=== PATIENT | male | born 1950 | race American Indian/Alaskan Native ===

== ENCOUNTER 2017-05-23 02:01 | Inpatient (IN) | payer OTHER, MEDICARE ==
[2017-05-23 03:40] LABS: Hemoglobin 12.1 gm/dl (11.8-15.2); Mean Corpuscular HGB Conc 33 % (32-34); Mean Corpuscular Hemoglobin 31 pg (28-32); Mean Corpuscular Volume 93 fl (84-94); Platelet Count 333 K/mm3 (140-440); Red Blood Count 3.96 M/mm3 (3.65-5.03); Red Cell Distribution Width 12.6 % (13.2-15.2)
[2017-05-23 03:48] LABS: INR 1.22 (0.87-1.13)
[2017-05-23 03:49] LABS: Partial Thromboplastin Time 33.3 Sec. (24.2-36.6)
[2017-05-23] MEDS ORDERED: CLEOCIN 600 MG/50 mL 600 MG/50 ML BAG IV ONE (03:51)
--- NOTE | 2017-05-23 03:51 | Emergency Department Report ---
ED Extremity Problem HPI - General Chief complaint: Extremity Injury, Lower Stated complaint: LEFT LEG PAIN Time Seen by Provider: 05/23/17 02:59 Source: patient, old records reviewed (no previous record) Mode of arrival: Ambulatory Limitations: Physical Limitation - History of Present Illness Initial comments: 67-year-old male with a past medical history hypertension presents to the Hospital complains of left leg swelling 3 days. Patient states he woke up and notices leg was swollen and feels like a soreness rated 8/10 when he tries to ambulate on the leg. Patient bought a cane to assist with ambulation due to the symptoms. Patient denies chest pain, shortness of breath, or near syncope. No recent travel or PE/DVT. Denies fevers or trauma. - Related Data Allergies Allergy/AdvReac Type Severity Reaction Status Date / Time influenza virus vaccine, AdvReac Dizziness Verified 05/23/17 02:20 specific ED Review of Systems ROS: Stated complaint: LEFT LEG PAIN Other details as noted in HPI Comment: All other systems reviewed and negative Other: Constitutional: No fevers chills Eyes: No eye pain visual changes ENT: No ear pain or throat pain Neck: Denies pain Respiratory: Denies cough wheezing shortness of breath Cardiovascular: Denies chest pain, palpitations, syncope GI: Denies abdominal pain, nausea, vomiting, diarrhea : Denies dysuria Musculoskeletal: As per HPI Skin: Denies rash, lesions, erythema Neurologic: Denies headache, numbness, weakness Psychiatric: Denies suicidal ideation, hallucinations ED Past Medical Hx - Past Medical History Previous Medical History?: Yes Hx Hypertension: Yes (Diet controlled) - Surgical History Past Surgical History?: Yes Additional Surgical History: EGD - Social History Smoking Status: Former Smoker ED Physical Exam - General Limitations: Physical Limitation - Other Other exam information: General: No limitations, patient is alert in no acute distress Head exam: Atraumatic, normocephalic Eyes exam: Normal appearance, pupils equal reactive to light, extraocular movements intact ENT: Moist mucous membrane, normal oropharynx Neck exam: Normal inspection, full range of motion, no meningismus nontender Respiratory exam: Clear to auscultation bilateral, no wheezes, rales, crackles Cardiovascular: Normal rate and rhythm, normal heart sounds Abdomen: Soft, nondistended, and nontender, with normal bowel sounds, no rebound, or guarding Extremity: Generalized left calf and thigh swelling, nonpitting, positive calf tenderness on palpation. 2+ DP pulses equal bilaterally. No erythema, mild warmth. No skin lesion Back: Normal Inspection, full range of motion, no tenderness Neurologic: Alert, oriented x3, cranial nerves intact, no motor or sensory deficit Psychiatric: normal affect, normal mood Skin: Warm, dry, intact ED Course Vital Signs 05/23/17 05/23/17 05/23/17 02:03 02:25 02:59 Temperature 97.7 F 98.7 F Pulse Rate 125 H 120 H Respiratory 18 18 Rate Blood Pressure 144/93 144/93 O2 Sat by Pulse 94 99 98 Oximetry 05/23/17 05/23/17 05/23/17 03:00 03:04 03:30 Temperature Pulse Rate 100 H Respiratory 17 20 Rate Blood Pressure 147/98 O2 Sat by Pulse 98 99 96 Oximetry 05/23/17 05/23/17 05/23/17 04:00 04:30 05:00 Temperature Pulse Rate 92 H 95 H 89 Respiratory 27 H 17 24 Rate Blood Pressure 121/74 121/74 119/73 O2 Sat by Pulse 98 98 98 Oximetry ED Medical Decision Making - Lab Data Result diagrams: 05/23/17 Unknown 05/23/17 Unknown Lab Results 05/23/17 05/23/17 05/23/17 Range/Units Unknown Unknown Unknown WBC 22.6 H (4.5-11.0) K/mm3 RBC 3.96 (3.65-5.03) M/mm3 Hgb 12.1 (11.8-15.2) gm/dl Hct 37.0 (35.5-45.6) % MCV 93 (84-94) fl MCH 31 (28-32) pg MCHC 33 (32-34) % RDW 12.6 L (13.2-15.2) % Plt Count 333 (140-440) K/mm3 Add Manual Diff Complete Total Counted 100 Seg Neutrophils % [employer] [place] Seg Neuts % (Manual) 98.0 H (40.0-70.0) % Band Neutrophils % 0 % Lymphocytes % (Manual) 1.0 L (13.4-35.0) % Reactive Lymphs % (Man) 0 % Monocytes % (Manual) 1.0 (0.0-7.3) % Eosinophils % (Manual) 0 (0.0-4.3) % Basophils % (Manual) 0 (0.0-1.8) % Metamyelocytes % 0 % Myelocytes % 0 % Promyelocytes % 0 % Blast Cells % 0 % Nucleated RBC % Not Reportable Seg Neutrophils # Man 22.1 H (1.8-7.7) K/mm3 Band Neutrophils # 0.0 K/mm3 Lymphocytes # (Manual) 0.2 L (1.2-5.4) K/mm3 Abs React Lymphs (Man) 0.0 K/mm3 Monocytes # (Manual) 0.2 (0.0-0.8) K/mm3 Eosinophils # (Manual) 0.0 (0.0-0.4) K/mm3 Basophils # (Manual) 0.0 (0.0-0.1) K/mm3 Metamyelocytes # 0.0 K/mm3 Myelocytes # 0.0 K/mm3 Promyelocytes # 0.0 K/mm3 Blast Cells # 0.0 K/mm3 WBC Morphology Not Reportable Hypersegmented Neuts Not Reportable Hyposegmented Neuts Not Reportable Hypogranular Neuts Not Reportable Smudge Cells Not Reportable Toxic Granulation Not Reportable Toxic Vacuolation Not Reportable Dohle Bodies Not Reportable Pelger-Huet Anomaly Not Reportable Pedro Rods Not Reportable Platelet Estimate Consistent w auto Clumped Platelets Not Reportable Plt Clumps, EDTA Not Reportable Large Platelets Not Reportable Giant Platelets Not Reportable Platelet Satelliting Not Reportable Plt Morphology Comment Not Reportable RBC Morphology Not Reportable Dimorphic RBCs Not Reportable Polychromasia Not Reportable Hypochromasia Not Reportable Poikilocytosis Not Reportable Anisocytosis Not Reportable Microcytosis Not Reportable Macrocytosis Not Reportable Spherocytes Not Reportable Pappenheimer Bodies Not Reportable Sickle Cells Not Reportable Target Cells Not Reportable Tear Drop Cells Not Reportable Ovalocytes Not Reportable Helmet Cells Not Reportable [place] Bodies Not Reportable [place] Rings Not Reportable [place] Cells Not Reportable Bite Cells Not Reportable Crenated Cell Not Reportable Elliptocytes Not Reportable Acanthocytes (Spur) Not Reportable Rouleaux Not Reportable Hemoglobin C Crystals Not Reportable Schistocytes Not Reportable Malaria parasites Not Reportable Marc Bodies Not Reportable Hem Pathologist Commnt No PT 16.1 H (12.2-14.9) Sec. INR 1.22 H (0.87-1.13) APTT 33.3 (24.2-36.6) Sec. D-Dimer > 07035 H (0-234) ng/mlDDU Sodium 133 L (137-145) mmol/L Potassium 4.3 (3.6-5.0) mmol/L Chloride 91.6 L (98-107) mmol/L Carbon Dioxide 25 (22-30) mmol/L Anion Gap 21 mmol/L BUN 20 (9-20) mg/dL Creatinine 1.3 (0.8-1.5) mg/dL Estimated GFR > 60 ml/min BUN/Creatinine Ratio 15 % Glucose 106 H (75-100) mg/dL Calcium 9.1 (8.4-10.2) mg/dL - EKG Data -: EKG Interpreted by Me EKG shows normal: sinus rhythm, axis (-17), QRS complexes (91), ST-T waves (no stemi/t inv) Rate: normal (95) - EKG Data When compared to previous EKG there are: previous EKG unavailable - Radiology Data Radiology results: report reviewed ct angio chest: no pulmonary embolus or aortic dissection. no acute process in the chest. benign-appearing cysts in the left hepatic lobe and left kidney. Aneuryrsmal dilation of the ascending aorta measuring 3.9 cm in diameter. - Medical Decision Making left leg swelling dvt likely diagnosis given elevated ddimer doppler not available at this time + leukocyotisis therefore blood cultures sent and Clindamycin ordered to cover for infection of the leg ct chest indicates shows no pe heparin initiated given size of leg so it may be discontinued if pt needs emergent vascular intervention. doppler ordered and pending on admission Dr Wilson/hospitalist informed of admission - Differential Diagnosis pe, dvt, cellulitis, Critical Care Time: No Critical care attestation.: If time is entered above; I have spent that time in minutes in the direct care of this critically ill patient, excluding procedure time. ED Disposition Clinical Impression: Elevated d-dimer, Leg edema, left, Leukocytosis Disposition: OP ADMIT IP TO THIS HOSP Is pt being admited?: Yes Condition: Stable Time of Disposition: 05:12 (Dr Wilson/hosp)
[2017-05-23 03:56] LABS: BUN/Creatinine Ratio 15; Blood Urea Nitrogen 20 mg/dL (9-20); Calcium 9.1 mg/dL (8.4-10.2); Hemolysis Index 4
[2017-05-23 04:13] LABS: Basophils % (Manual) 0 % (0.0-1.8); Eosinophils % (Manual) 0 % (0.0-4.3); Total Cells Counted 100
[2017-05-23 04:14] LABS: Platelet Estimate Consistent w Auto
[2017-05-23] MEDS ORDERED: HEPARIN 10,000 UNITS/10 ML IV ONE (04:16)
[2017-05-23] MEDS: HEPARIN/ 0.45% NACL-25,000 UNIT/500 ML 25,000 UNIT/500 ML BAG IV SCH ×2 (05:00→13:03)
--- NOTE | 2017-05-23 05:05 | Cat Scan Report ---
FINAL REPORT EXAM: CT ANGIO CHEST HISTORY: elevated ddimer, clinical dvt left leg TECHNIQUE: A CT angiogram was performed following the intravenous injection of iodinated contrast. Rotational, sagittal and coronal MIP reconstructions were reviewed. FINDINGS: There is no evidence of pulmonary embolus or aortic dissection. The heart size is normal. There is mild aneurysmal dilatation of the ascending aorta measuring 3.9 cm in diameter. There is no evidence of adenopathy. The lungs are clear. Pleural fluid is not seen. In the upper abdomen the adrenal glands appear normal. There are benign-appearing cysts in the left hepatic lobe left kidney measuring 15 millimeters in diameter. The skeletal structures appear well maintained. At the thoracic inlet the thyroid gland appears normal. IMPRESSION: No evidence of pulmonary embolus or aortic dissection. No acute process in the chest. Benign-appearing cysts in the left hepatic lobe and left kidney. Aneurysmal dilatation of the ascending aorta measuring 3.9 cm in diameter
--- NOTE | 2017-05-23 07:20 | History and Physical Report ---
History of Present Illness Date of examination: 05/23/17 Date of admission: 05/23/17 05:14 Chief complaint: Left lower extremity swelling for the last 2-3 days History of present illness: Very pleasant 62-year-old -[place] male patient with significant past medical history of hypertension not on any medications presented to the emergency room with the left lower extremity swelling of 3 days duration, also complaints of pain greatest between 6-8/10 when he tried to ambulate Patient denies any history of trauma, no recent immobilization or long travel Denies fever, shortness of breath or chest pain Initial evaluation in the ED is consistent with elevated d-dimer's more than 10, 000, CTA chest is negative for PE Lower extremity venous Doppler is pending ED has started heparin drip for possible DVT Past History Past Medical History: hypertension, other (history of thromboembolism) Past Surgical History: Other (had EGD many years ago which was negative) Social history: lives with family, full code. denies: smoking (quit smoking 25 years ago), alcohol abuse, IV drug use Family history: hypertension Medications and Allergies Allergies Allergy/AdvReac Type Severity Reaction Status Date / Time influenza virus vaccine, AdvReac Dizziness Verified 05/23/17 02:20 specific Home Medications Medication Instructions Recorded Confirmed Last Taken Type No Known Home Medications [No 05/23/17 05/23/17 Unknown History Reported Home Medications] Active Meds: Active Medications Heparin Sodium/Sodium Chloride (Heparin/ 0.45% Nacl-25,000 Unit/500 Ml) 25,000 unit in 500 mls @ 26 mls/hr IV TITR MALLORY; 1,300 UNITS/HR PRN Reason: Protocol Last Admin: 05/23/17 05:00 Dose: 1,300 units/hr, 26 mls/hr Review of Systems Constitutional: no weight loss, no weight gain, no fever Ears, nose, mouth and throat: no ear discharge, no nasal congestion Cardiovascular: no chest pain, no orthopnea, no palpitations Respiratory: no cough with sputum, no shortness of breath Gastrointestinal: no abdominal pain, no nausea, no vomiting Genitourinary Male: no dysuria, no hematuria Musculoskeletal: other (left lower extremity swelling and pain), no myalgias, no arthritis Integumentary: no rash, no lesions Neurological: no weakness, no numbness, no seizures, no syncope Psychiatric: no anxiety, no depression Endocrine: no cold intolerance, no heat intolerance Hematologic/Lymphatic: no easy bruising, no easy bleeding Allergic/Immunologic: no urticaria, no allergic rhinitis Exam - Constitutional Vitals: Temp Pulse Resp BP Pulse Ox 98.7 F 80 19 108/71 97 05/23/17 02:25 05/23/17 06:30 05/23/17 06:30 05/23/17 06:30 05/23/17 06:30 General appearance: Present: no acute distress, well-nourished - EENT Eyes: Present: PERRL, EOM intact - Neck Neck: Present: supple, normal ROM - Respiratory Respiratory effort: normal Respiratory: bilateral: diminished, rhonchi, negative: rales, wheezing - Cardiovascular Rhythm: regular Heart Sounds: Present: S1 & S2 - Extremities Extremities: no ischemia, No edema - Abdominal General gastrointestinal: Present: soft, non-tender, non-distended, normal bowel sounds - Integumentary Integumentary: Present: clear, warm - Musculoskeletal Musculoskeletal: strength equal bilaterally, other (left lower extremity swelling in the thigh and leg, mild tenderness on palpation) - Psychiatric Psychiatric: appropriate mood/affect, cooperative - Neurologic Neurologic: CNII-XII intact, moves all extremities Results - Labs CBC & Chem 7: 05/23/17 Unknown 05/23/17 Unknown Labs: Abnormal lab results 05/23/17 05/23/17 05/23/17 Range/Units Unknown Unknown Unknown WBC 22.6 H (4.5-11.0) K/mm3 RDW 12.6 L (13.2-15.2) % Seg Neuts % (Manual) 98.0 H (40.0-70.0) % Lymphocytes % (Manual) 1.0 L (13.4-35.0) % Seg Neutrophils # Man 22.1 H (1.8-7.7) K/mm3 Lymphocytes # (Manual) 0.2 L (1.2-5.4) K/mm3 PT 16.1 H (12.2-14.9) Sec. INR 1.22 H (0.87-1.13) D-Dimer > 36900 H (0-234) ng/mlDDU Sodium 133 L (137-145) mmol/L Chloride 91.6 L (98-107) mmol/L Glucose 106 H (75-100) mg/dL Assessment and Plan --Left lower extremity swelling; in the setting of elevated d-dimer --Possible Lt LE DVT; follow venous Doppler to rule out DVT, empiric anticoagulation with heparin drip CTA chest negative --Left leg pain probably secondary to DVT, elevate the limb, anticoagulation, pain medications --Leukocytosis; probably secondary to cellulitis, or stress-induced, empiric antibiotics with clindamycin Closely monitor --Mild hyponatremia; replacement therapy, closely monitor electrolytes --DVT prophylaxis; patient is already started on heparin drip --Full CODE STATUS Closely monitor the patient and adjust management as needed Consider vascular/hematology consult if needed Plan of care reviewed with the patient, answered all his questions
[2017-05-23] MEDS: PEPCID PO SCH ×2 (09:45→21:20)
[2017-05-23] MEDS ORDERED: MORPHINE IV PRN (10:00)
[2017-05-23] MEDS ORDERED: ZOFRAN IV PRN (10:00)
--- NOTE | 2017-05-23 19:35 | Event Note ---
Date: 05/23/17 Lower extremity venous Doppler positive for DVT Anterior heparin drip, changed to Lovenox, hematology evaluation In the mid discharge the patient on eliquis, checked with case management for assistance Plan of care discussed with the patient
[2017-05-23] MEDS ORDERED: AMBIEN PO PRN (22:00)
[2017-05-24 07:00] LABS: Basophils % (Auto) 0.2 % (0.0-1.8); Eosinophils # (Auto) 0.1 K/mm3 (0.0-0.4); Eosinophils % (Auto) 0.6 % (0.0-4.3); Hematocrit 35.6 % (35.5-45.6); Hemoglobin 11.4 gm/dl (11.8-15.2); Lymphocytes # (Auto) 1.1 K/mm3 (1.2-5.4); Lymphocytes % (Auto) 6.1 % (13.4-35.0); Mean Corpuscular HGB Conc 32 % (32-34); Mean Corpuscular Hemoglobin 30 pg (28-32); Mean Corpuscular Volume 94 fl (84-94); Monocytes # (Auto) 1.9 K/mm3 (0.0-0.8); Monocytes % (Auto) 10.4 % (0.0-7.3); Platelet Count 337 K/mm3 (140-440); Red Blood Count 3.79 M/mm3 (3.65-5.03); Red Cell Distribution Width 12.7 % (13.2-15.2)
[2017-05-24 07:21] LABS: BUN/Creatinine Ratio 16; Blood Urea Nitrogen 16 mg/dL (9-20); Calcium 8.9 mg/dL (8.4-10.2); Hemolysis Index 0
--- NOTE | 2017-05-24 08:26 | Progress Note ---
Assessment and Plan Assessment and plan: 67m who pw, Left lower extremity swelling for the last 2-3 days --Left lower extremity swelling; in the setting of elevated d-dimer --Possible Lt LE DVT; follow venous Doppler to rule out DVT, empiric anticoagulation with heparin drip CTA chest negative --Left leg pain probably secondary to DVT, elevate the limb, anticoagulation, pain medications --Leukocytosis; probably secondary to cellulitis, or stress-induced, empiric antibiotics with clindamycin Closely monitor --Mild hyponatremia; replacement therapy, closely monitor electrolytes --DVT prophylaxis; patient is already started on heparin drip --Full CODE STATUS Closely monitor the patient and adjust management as needed Consider vascular/hematology consult if needed Plan of care reviewed with the patient, answered all his questions Hospitalist Physical - Constitutional Vitals: Temp Pulse Resp BP Pulse Ox 99.0 F 82 16 98/61 97 05/23/17 20:40 05/23/17 20:40 05/23/17 20:40 05/23/17 20:40 05/23/17 20:40 General appearance: Present: no acute distress, well-nourished Results - Labs CBC & Chem 7: 05/24/17 06:18 05/24/17 06:18 Labs: Laboratory Last Values WBC 17.9 K/mm3 (4.5-11.0) H 05/24/17 06:18 RBC 3.79 M/mm3 (3.65-5.03) 05/24/17 06:18 Hgb 11.4 gm/dl (11.8-15.2) L 05/24/17 06:18 Hct 35.6 % (35.5-45.6) 05/24/17 06:18 MCV 94 fl (84-94) 05/24/17 06:18 MCH 30 pg (28-32) 05/24/17 06:18 MCHC 32 % (32-34) 05/24/17 06:18 RDW 12.7 % (13.2-15.2) L 05/24/17 06:18 Plt Count 337 K/mm3 (140-440) 05/24/17 06:18 Lymph % (Auto) 6.1 % (13.4-35.0) L 05/24/17 06:18 [place] % (Auto) 10.4 % (0.0-7.3) H 05/24/17 06:18 Eos % (Auto) 0.6 % (0.0-4.3) 05/24/17 06:18 Baso % (Auto) 0.2 % (0.0-1.8) 05/24/17 06:18 Lymph # 1.1 K/mm3 (1.2-5.4) L 05/24/17 06:18 [place]kean # 1.9 K/mm3 (0.0-0.8) H 05/24/17 06:18 Eos # 0.1 K/mm3 (0.0-0.4) 05/24/17 06:18 Baso # 0.0 K/mm3 (0.0-0.1) 05/24/17 06:18 Add Manual Diff Complete 05/23/17 Unknown Total Counted 100 05/23/17 Unknown Seg Neutrophils % 82.7 % (40.0-70.0) H 05/24/17 06:18 Seg Neuts % (Manual) 98.0 % (40.0-70.0) H 05/23/17 Unknown Band Neutrophils % 0 % 05/23/17 Unknown Lymphocytes % (Manual) 1.0 % (13.4-35.0) L 05/23/17 Unknown Reactive Lymphs % (Man) 0 % 05/23/17 Unknown Monocytes % (Manual) 1.0 % (0.0-7.3) 05/23/17 Unknown Eosinophils % (Manual) 0 % (0.0-4.3) 05/23/17 Unknown Basophils % (Manual) 0 % (0.0-1.8) 05/23/17 Unknown Metamyelocytes % 0 % 05/23/17 Unknown Myelocytes % 0 % 05/23/17 Unknown Promyelocytes % 0 % 05/23/17 Unknown Blast Cells % 0 % 05/23/17 Unknown Nucleated RBC % Not Reportable 05/23/17 Unknown Seg Neutrophils # 14.8 K/mm3 (1.8-7.7) H 05/24/17 06:18 Seg Neutrophils # Man 22.1 K/mm3 (1.8-7.7) H 05/23/17 Unknown Band Neutrophils # 0.0 K/mm3 05/23/17 Unknown Lymphocytes # (Manual) 0.2 K/mm3 (1.2-5.4) L 05/23/17 Unknown Abs React Lymphs (Man) 0.0 K/mm3 05/23/17 Unknown Monocytes # (Manual) 0.2 K/mm3 (0.0-0.8) 05/23/17 Unknown Eosinophils # (Manual) 0.0 K/mm3 (0.0-0.4) 05/23/17 Unknown Basophils # (Manual) 0.0 K/mm3 (0.0-0.1) 05/23/17 Unknown Metamyelocytes # 0.0 K/mm3 05/23/17 Unknown Myelocytes # 0.0 K/mm3 05/23/17 Unknown Promyelocytes # 0.0 K/mm3 05/23/17 Unknown Blast Cells # 0.0 K/mm3 05/23/17 Unknown WBC Morphology Not Reportable 05/23/17 Unknown Hypersegmented Neuts Not Reportable 05/23/17 Unknown Hyposegmented Neuts Not Reportable 05/23/17 Unknown Hypogranular Neuts Not Reportable 05/23/17 Unknown Smudge Cells Not Reportable 05/23/17 Unknown Toxic Granulation Not Reportable 05/23/17 Unknown Toxic Vacuolation Not Reportable 05/23/17 Unknown Dohle Bodies Not Reportable 05/23/17 Unknown Pelger-Huet Anomaly Not Reportable 05/23/17 Unknown Pedro Rods Not Reportable 05/23/17 Unknown Platelet Estimate Consistent w auto 05/23/17 Unknown Clumped Platelets Not Reportable 05/23/17 Unknown Plt Clumps, EDTA Not Reportable 05/23/17 Unknown Large Platelets Not Reportable 05/23/17 Unknown Giant Platelets Not Reportable 05/23/17 Unknown Platelet Satelliting Not Reportable 05/23/17 Unknown Plt Morphology Comment Not Reportable 05/23/17 Unknown RBC Morphology Not Reportable 05/23/17 Unknown Dimorphic RBCs Not Reportable 05/23/17 Unknown Polychromasia Not Reportable 05/23/17 Unknown Hypochromasia Not Reportable 05/23/17 Unknown Poikilocytosis Not Reportable 05/23/17 Unknown Anisocytosis Not Reportable 05/23/17 Unknown Microcytosis Not Reportable 05/23/17 Unknown Macrocytosis Not Reportable 05/23/17 Unknown Spherocytes Not Reportable 05/23/17 Unknown Pappenheimer Bodies Not Reportable 05/23/17 Unknown Sickle Cells Not Reportable 05/23/17 Unknown Target Cells Not Reportable 05/23/17 Unknown Tear Drop Cells Not Reportable 05/23/17 Unknown Ovalocytes Not Reportable 05/23/17 Unknown Helmet Cells Not Reportable 05/23/17 Unknown [place] Bodies Not Reportable 05/23/17 Unknown [place] Rings Not Reportable 05/23/17 Unknown [place] Cells Not Reportable 05/23/17 Unknown Bite Cells Not Reportable 05/23/17 Unknown Crenated Cell Not Reportable 05/23/17 Unknown Elliptocytes Not Reportable 05/23/17 Unknown Acanthocytes (Spur) Not Reportable 05/23/17 Unknown Rouleaux Not Reportable 05/23/17 Unknown Hemoglobin C Crystals Not Reportable 05/23/17 Unknown Schistocytes Not Reportable 05/23/17 Unknown Malaria parasites Not Reportable 05/23/17 Unknown Marc Bodies Not Reportable 05/23/17 Unknown Hem Pathologist Commnt No 05/23/17 Unknown PT 16.1 Sec. (12.2-14.9) H 05/23/17 Unknown INR 1.22 (0.87-1.13) H 05/23/17 Unknown APTT 33.3 Sec. (24.2-36.6) 05/23/17 Unknown D-Dimer > 07196 ng/mlDDU (0-234) H 05/23/17 Unknown Heparin Anti-Xa Level 0.13 U.I./ml (0.3-0.7) L 05/23/17 20:05 Sodium 137 mmol/L (137-145) 05/24/17 06:18 Potassium 4.1 mmol/L (3.6-5.0) 05/24/17 06:18 Chloride 96.7 mmol/L (98-107) L 05/24/17 06:18 Carbon Dioxide 27 mmol/L (22-30) 05/24/17 06:18 Anion Gap 17 mmol/L 05/24/17 06:18 BUN 16 mg/dL (9-20) 05/24/17 06:18 Creatinine 1.0 mg/dL (0.8-1.5) 05/24/17 06:18 Estimated GFR > 60 ml/min 05/24/17 06:18 BUN/Creatinine Ratio 16 % 05/24/17 06:18 Glucose 94 mg/dL (75-100) 05/24/17 06:18 Calcium 8.9 mg/dL (8.4-10.2) 05/24/17 06:18
[2017-05-24] MEDS ORDERED: LOVENOX SUB-Q SCH (10:00)
[2017-05-24] MEDS: PEPCID PO SCH ×2 (11:01→22:27)
[2017-05-24] MEDS: ELIQUIS PO SCH ×2 (11:01→22:26)
--- NOTE | 2017-05-24 17:04 | Hem/Onc Consultation ---
History of Present Illness - Reason for Consult Consult date: 05/24/17 DVT - History of Present Illness 67 year old gentleman seen for DVT. States he was very active and noticed 3 days of pain redness and swelling of left lower extremity. Diagnosed with DVT. Past History Past Medical History: hypertension, other (no history of thromboembolism) Past Surgical History: Other (had EGD many years ago which was negative) Social history: lives with family, full code. denies: smoking (quit smoking 25 years ago), alcohol abuse, IV drug use Family history: hypertension Medications and Allergies Allergies Allergy/AdvReac Type Severity Reaction Status Date / Time influenza virus vaccine, AdvReac Dizziness Verified 05/23/17 02:20 specific Home Medications Medication Instructions Recorded Confirmed Last Taken Type No Known Home Medications [No 05/23/17 05/23/17 Unknown History Reported Home Medications] Active Meds: Active Medications Apixaban (Eliquis) 10 mg PO Q12HR MALLORY PRN Reason: Protocol Last Admin: 05/24/17 11:01 Dose: 10 mg Famotidine (Pepcid) 20 mg PO BID [facility] Last Admin: 05/24/17 11:01 Dose: 20 mg Morphine Sulfate (Morphine) 2 mg IV Q4H PRN PRN Reason: Pain, Moderate (4-6) Ondansetron HCl (Zofran) 4 mg IV Q4H PRN PRN Reason: Nausea And Vomiting Zolpidem Tartrate (Ambien) 5 mg PO QHS PRN PRN Reason: Sleep Review of Systems All systems: negative (left leg swelling) Exam - Constitutional Vitals: Last Vital Signs Temp 98.5 F 05/24/17 08:12 Pulse 79 05/24/17 08:12 Resp 20 05/24/17 08:12 BP 95/62 05/24/17 08:12 Pulse Ox 99 05/24/17 08:12 Pain Intensity (0-10): 1/10 - EENT Eyes: PERRL ENT: hearing decreased Lymph node exam: negative cervical - Neck Neck: supple - Respiratory Respiratory effort: Positive: normal Respiratory: bilateral: CTA - Cardiovascular Rhythm: regular Heart Sounds: Present: S1 & S2 Extremity abnormal: edema - Gastrointestinal General gastrointestinal: Present: soft - Integumentary Integumentary: clear - Musculoskeletal Musculoskeletal: strength equal bilaterally - Neurologic Neurologic: CNII-XII intact - Psychiatric Psychiatric: appropriate mood/affect Results - Labs lab Results: Laboratory Results - last 24 hr 05/23/17 05/24/17 05/24/17 20:05 06:18 06:18 WBC 17.9 H RBC 3.79 Hgb 11.4 L Hct 35.6 MCV 94 MCH 30 MCHC 32 RDW 12.7 L Plt Count 337 Lymph % (Auto) 6.1 L [place]cd[place] % (Auto) 10.4 H Eos % (Auto) 0.6 Baso % (Auto) 0.2 Lymph # 1.1 L [place]cdonough # 1.9 H Eos # 0.1 Baso # 0.0 Seg Neutrophils % 82.7 H Seg Neutrophils # 14.8 H Heparin Anti-Xa Level 0.13 L Sodium 137 Potassium 4.1 Chloride 96.7 L Carbon Dioxide 27 Anion Gap 17 BUN 16 Creatinine 1.0 Estimated GFR > 60 BUN/Creatinine Ratio 16 Glucose 94 Calcium 8.9 - Imaging and cardiology CT scan - chest: report reviewed, image reviewed Assessment and Plan - Patient Problems (1) Dvt femoral (deep venous thrombosis) Current Visit: Yes Status: Acute Plan to address problem: HE has idiopathic DVT. No personal or family history of DVT. Needs outpatient follow up. He agrees. Transition to NOAC and dc home. Strict compliance with outpatient follow up stressed. he agrees to see us in 1 week.
--- NOTE | 2017-05-24 18:32 | Consultation ---
History of Present Illness - Reason for Consult Consult date: 05/24/17 - History of Present Illness This is a 62-year-old -[place] male that was admitted on 05/23/2017 due to left lower extremity swelling. This started approximately one week ago, but has been progressively worse over the last 2-3 days which prompted him to go to the emergency room at [facility] where he was subsequently admitted. A venous duplex revealed a left common femoral, superficial femoral, deep femoral, and popliteal vein DVT. He was started on anticoagulation with heparin, and a vascular surgery consult has been requested to further evaluate. The patient states that over the last 2-3 days he has experienced exquisite pain with weight-bearing. He was unable to ambulate and therefore presented to the emergency room for further evaluation. He denies any history of previous "blood clots". He denies any long distance travel over the last 1-2 weeks. He drove approximately 90-150 miles 3 weeks ago. He has frequent minor trauma to his left lower extremity associated with his job, but denied any knowledge of a significant event prior to the onset of swelling. 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 denies: smoking (quit smoking 25 years ago), alcohol abuse, IV drug use Family history: hypertension Medications and Allergies Allergies Allergy/AdvReac Type Severity Reaction Status Date / Time influenza virus vaccine, AdvReac Dizziness Verified 05/23/17 02:20 specific Home Medications Medication Instructions Recorded Confirmed Last Taken Type No Known Home Medications [No 05/23/17 05/23/17 Unknown History Reported Home Medications] Active Meds: Active Medications Apixaban (Eliquis) 10 mg PO Q12HR MALLORY PRN Reason: Protocol Last Admin: 05/24/17 11:01 Dose: 10 mg Famotidine (Pepcid) 20 mg PO BID [facility] Last Admin: 05/24/17 11:01 Dose: 20 mg Morphine Sulfate (Morphine) 2 mg IV Q4H PRN PRN Reason: Pain, Moderate (4-6) Ondansetron HCl (Zofran) 4 mg IV Q4H PRN PRN Reason: Nausea And Vomiting Zolpidem Tartrate (Ambien) 5 mg PO QHS PRN PRN Reason: Sleep Review of Systems All systems: negative Constitutional: weight loss (he has an unintentional weight loss of approximately 15 pounds over the last month.) Exam - Constitutional Vitals: Temp Pulse Resp BP Pulse Ox 98.5 F 79 20 95/62 99 05/24/17 08:12 05/24/17 08:12 05/24/17 08:12 05/24/17 08:12 05/24/17 08:12 General appearance: Present: no acute distress, other (thin) - EENT Eyes: Present: EOM intact ENT: hearing decreased (hard of hearing) - Neck Neck: Present: supple - Respiratory Respiratory effort: normal - Extremities Extremities: no ischemia, normal temperature Extremity abnormal: edema (left lower extremity) - Psychiatric Psychiatric: appropriate mood/affect, intact judgment & insight, cooperative - Neurologic Neurologic: no focal deficits Results - Labs CBC & Chem 7: 05/24/17 06:18 05/24/17 06:18 Labs: Abnormal lab results 05/23/17 05/24/17 05/24/17 Range/Units 20:05 06:18 06:18 WBC 17.9 H (4.5-11.0) K/mm3 Hgb 11.4 L (11.8-15.2) gm/dl RDW 12.7 L (13.2-15.2) % Lymph % (Auto) 6.1 L (13.4-35.0) % [place] % (Auto) 10.4 H (0.0-7.3) % Lymph # 1.1 L (1.2-5.4) K/mm3 [place] # 1.9 H (0.0-0.8) K/mm3 Seg Neutrophils % 82.7 H (40.0-70.0) % Seg Neutrophils # 14.8 H (1.8-7.7) K/mm3 Heparin Anti-Xa Level 0.13 L (0.3-0.7) U.I./ml Chloride 96.7 L (98-107) mmol/L Assessment and Plan This patient presented with a one-week history of acute onset left lower extremity pain and swelling. Venous duplex shows a DVT extending from his left common femoral vein into the profunda and superficial femoral and the popliteal veins. Pain with weight-bearing prevented the patient from ambulating. He states that the pain has improved following admission (likely as a result of heparinization and lower extremity elevation), but he has not been out of bed as far. Agree with anticoagulation at this point. We will increase his activity level, and see how he tolerates weight-bearing. Ultrasound imaging was difficult above the level of the femoral vein (so it is unclear if he has proximal extension). At this point it is unclear if he will benefit from thrombolytic therapy. We'll continue to follow along with you. Agree with hematology/oncology consult. Given his unprovoked DVT and ~15lb unintentional weight loss over the last month, would evaluate for possible occult malignancy. - Patient Problems (1) Acute deep vein thrombosis (DVT) of left femoral vein Current Visit: Yes Status: Acute (2) Unintentional weight loss Current Visit: Yes Status: Acute
[2017-05-25] MEDS: PEPCID PO SCH (09:58)
[2017-05-25] MEDS: ELIQUIS PO SCH (09:58)
--- NOTE | 2017-05-25 12:26 | Progress Note ---
Assessment and Plan Vision with extensive left iliofemoral DVT. He is improving on anticoagulation will need to be continued for at least 6 months. He may follow up in our office for further evaluation of venous reflux and possibly central venous stenosis as an underlying etiology for his acute left leg DVT. At this time, the patient does not appear to need lytic therapy. Subjective Date of service: 05/25/17 Principal diagnosis: dvt Interval history: The patient reports subjective improvement in the swelling in his left leg. His left leg is soft and warm. No significant erythema. His pain has greatly decreased since presentation. Objective - Constitutional Vitals: Vital Signs - 12hr 05/25/17 07:43 Temperature 98.5 F Pulse Rate 82 Respiratory 18 Rate Blood Pressure 117/69 O2 Sat by Pulse 99 Oximetry General appearance: Present: no acute distress - EENT Eyes: PERRL ENT: hearing intact - Neck Neck: supple, normal ROM - Respiratory Respiratory effort: normal - Breasts Breasts: deferred Extremity abnormal: edema (left leg) - Gastrointestinal General gastrointestinal: Present: deferred Rectal Exam: deferred - Genitourinary Male genitourinary: deferred - Psychiatric Psychiatric: appropriate mood/affect - Labs CBC & Chem 7: 05/24/17 06:18 05/24/17 06:18 - Imaging and cardiology Venous US: report reviewed, image reviewed
--- NOTE | 2017-05-25 13:03 | Vascular Lab Report ---
Left Lower Extremity Venous Duplex Study: Reason for Exam: Left lower extremity edema and elevated d-dimer. Comments on the Right: A limited duplex study was done of the proximal veins of the right lower extremity. All veins visualized are freely compressible without evidence of internal echogenicity. Flow is spontaneous and phasic throughout. No evidence of acute or chronic thrombus is seen in any of the vessels visualized. Comments on the Left: All veins visualized are freely compressible without evidence of internal echogenicity. Flow is spontaneous and phasic throughout. No evidence of acute or chronic thrombus is seen in any of the vessels visualized. Impression: No evidence of acute or chronic deep venous thrombosis in the left lower extremity.
--- NOTE | 2017-05-25 14:06 | Discharge Summary ---
Providers - Providers Date of Admission: 05/23/17 05:14 Attending physician: JASON ESTEVEZ MD 05/23/17 19:27 Consult to Physician [CONS] Routine Consulting Provider: ROCIO GUTIERREZ Reason For Exam: LE DVT Place consult to:: Office Notified:: yes Phone number called:: [phone] Was contact made?: Yes If yes, spoke with:: Nadia (answering service) Time called:: 20:00 05/24/17 12:42 Consult to Physician [CONS] Routine Consulting Provider: RO JEAN BAPTISTE Reason For Exam: extensive LLE dvt Place consult to:: Connor dash Notified:: Teddy Phone number called:: In House Was contact made?: Yes If yes, spoke with:: Teddy Time called:: 13:51 Primary care physician: ALAN SHEFFIELD Hospitalization Condition: Stable Hospital course: 67m who pw, Left lower extremity swelling for the last 2-3 days --Left lower extremity swelling; in the setting of elevated d-dimer --Possible Lt LE DVT; follow venous Doppler to rule out DVT, empiric anticoagulation with heparin drip CTA chest negative --Left leg pain probably secondary to DVT, elevate the limb, anticoagulation, pain medications --Leukocytosis; probably secondary to cellulitis, or stress-induced, empiric antibiotics with clindamycin Closely monitor --Mild hyponatremia; replacement therapy, closely monitor electrolytes --DVT prophylaxis; patient is already started on heparin drip --Full CODE STATUS Closely monitor the patient and adjust management as needed Consider vascular/hematology consult if needed Plan of care reviewed with the patient, answered all his questions Disposition: [place]- TO HOME OR SELFCARE Time spent for discharge: 33 minutes Core Measure Documentation - Palliative Care Palliative Care/ Comfort Measures: Not Applicable - Core Measures Any of the following diagnoses?: DVT/PE - VTE Discharge Requirements Deep Vein Thrombosis/Pulmonary Embolism Present on Admission: Yes Has pt received <5 days of overlap therapy or INR<2.0: No Anticoagulant overlap therapy prescribed at discharge: No Contraindication No Overlap Therapy order at DC: Not Indicated Exam - Constitutional Vitals: Temp Pulse Resp BP Pulse Ox 98.5 F 82 18 117/69 99 05/25/17 07:43 05/25/17 07:43 05/25/17 07:43 05/25/17 07:43 05/25/17 07:43 General appearance: Present: no acute distress, well-nourished - EENT Eyes: Present: PERRL ENT: hearing intact, clear oral mucosa - Neck Neck: Present: supple, normal ROM - Respiratory Respiratory effort: normal Respiratory: bilateral: CTA - Cardiovascular Heart Sounds: Present: S1 & S2. Absent: rub, click - Extremities Extremities: pulses symmetrical Extremity abnormal: edema (LLE) Peripheral Pulses: within normal limits - Abdominal General gastrointestinal: Present: soft, non-tender, non-distended, normal bowel sounds Male genitourinary: Present: normal - Integumentary Integumentary: Present: clear, warm, dry - Musculoskeletal Musculoskeletal: gait normal, strength equal bilaterally - Psychiatric Psychiatric: appropriate mood/affect, intact judgment & insight - Neurologic Neurologic: CNII-XII intact, moves all extremities Plan Follow up with: ALAN SHEFFIELD MD [Primary Care Provider] - 7 Days Prescriptions: Apixaban [Eliquis] 10 mg PO Q12HR #42 tablet oxyCODONE /ACETAMINOPHEN [Percocet 5/325] 1 tab PO Q6HR PRN #20 tablet PRN Reason: Pain
[2017-05-25 15:54] VITALS: BP 113/64
== END 2017-05-25 17:45 | disposition home or self-care (01) | DRG 300 ==
LOC: ED 02:01 → 3A 05:14
PROVIDERS: ADMIT Internal Medicine; ATTEND Internal Medicine
DX: I82.422 Acute embolism and thrombosis of left iliac vein (principal); E87.1 Hypo-osmolality and hyponatremia; L03.116 Cellulitis of left lower limb; I82.412 Acute embolism and thrombosis of left femoral vein; I82.432 Acute embolism and thrombosis of left popliteal vein; D72.829 Elevated white blood cell count, unspecified; I10 Essential (primary) hypertension; R63.4 Abnormal weight loss; Z87.891 Personal history of nicotine dependence; Z68.28 Body mass index [BMI] 28.0-28.9, adult
CPT/HCPCS: 36415; 71275; 80048; 85007; 85025; 85379; 85520; 85610; 85730; 87040; 93005; 93010; 96365; 96375; J1644; Q9967

== ENCOUNTER 2017-12-19 02:27 | Emergency (ER) | payer OTHER, MEDICARE ==
[2017-12-19] MEDS ORDERED: ASPIRIN PO ONE (03:36)
[2017-12-19 04:08] LABS: Basophils # (Auto) 0.1 K/mm3 (0.0-0.1); Basophils % (Auto) 0.8 % (0.0-1.8); Eosinophils # (Auto) 0.4 K/mm3 (0.0-0.4); Eosinophils % (Auto) 6.9 % (0.0-4.3); Hematocrit 35.3 % (35.5-45.6); Hemoglobin 11.7 gm/dl (11.8-15.2); Lymphocytes # (Auto) 1.1 K/mm3 (1.2-5.4); Lymphocytes % (Auto) 17.4 % (13.4-35.0); Mean Corpuscular HGB Conc 33 % (32-34); Mean Corpuscular Hemoglobin 31 pg (28-32); Mean Corpuscular Volume 94 fl (84-94); Monocytes # (Auto) 0.5 K/mm3 (0.0-0.8); Monocytes % (Auto) 8.6 % (0.0-7.3); Platelet Count 257 K/mm3 (140-440); Red Blood Count 3.75 M/mm3 (3.65-5.03); Red Cell Distribution Width 14.3 % (13.2-15.2)
[2017-12-19 04:26] LABS: BUN/Creatinine Ratio 11; Blood Urea Nitrogen 10 mg/dL (9-20); Calcium 9.2 mg/dL (8.4-10.2); Hemolysis Index 2
[2017-12-19 07:59] VITALS: BP 155/79
--- NOTE | 2017-12-19 11:45 | XRay Report ---
ROUTINE CHEST, TWO VIEWS: HISTORY: chest pain. The trachea, heart, mediastinal contour, lung harry and bony thorax are unremarkable. IMPRESSION: Unremarkable chest x-ray.
--- NOTE | 2017-12-19 12:00 | Emergency Department Report ---
ED Chest Pain HPI - General Chief Complaint: Chest Pain Stated Complaint: CHEST PAIN Time Seen by Provider: 12/19/17 10:32 Source: patient Mode of arrival: Ambulatory Limitations: No Limitations - History of Present Illness Initial Comments: Patient is a 67-year-old -[place]er male who is complaining of some soreness in the chest for the past week. Patient states he has been working out. Patient says pain is worse at night and is intermittent. States it's a soreness that this is a 4 out of 10 in severity. Patient denies any shortness of breath cough "congestion and nausea vomiting at this time. Patient's does have a history DVT was taken off his alcohol use. Patient's had no further leg swelling or leg complaints. Severity scale (0 -10): 7 - Related Data Previous Rx's Medication Instructions Recorded Last Taken Type Apixaban [Eliquis] 10 mg PO Q12HR #42 tablet 05/25/17 Unknown Rx oxyCODONE /ACETAMINOPHEN [Percocet 1 tab PO Q6HR PRN #20 tablet 05/25/17 Unknown Rx 5/325] Ibuprofen [Motrin] 600 mg PO Q8H PRN #20 tablet 12/19/17 Unknown Rx Allergies Allergy/AdvReac Type Severity Reaction Status Date / Time influenza virus vaccine, AdvReac Dizziness Verified 05/23/17 02:20 specific Heart Score - HEART Score History: Slightly suspicious EKG: Normal Age: 45-65 Risk factors: 1-2 risk factors Troponin: < normal limit HEART Score: 2 ED Review of Systems ROS: Stated complaint: CHEST PAIN Other details as noted in HPI Comment: All other systems reviewed and negative ED Past Medical Hx - Past Medical History Hx Hypertension: Yes - Surgical History Additional Surgical History: EGD - Social History Smoking Status: Never Smoker Substance Use Type: None - Medications Home Medications: Home Medications Medication Instructions Recorded Confirmed Last Taken Type Apixaban [Eliquis] 10 mg PO Q12HR #42 tablet 05/25/17 Unknown Rx oxyCODONE /ACETAMINOPHEN [Percocet 1 tab PO Q6HR PRN #20 tablet 05/25/17 Unknown Rx 5/325] Ibuprofen [Motrin] 600 mg PO Q8H PRN #20 tablet 12/19/17 Unknown Rx ED Physical Exam - General Limitations: No Limitations General appearance: alert, in no apparent distress - Head Head exam: Present: atraumatic, normocephalic - Eye Eye exam: Present: normal appearance - ENT ENT exam: Present: mucous membranes moist - Neck Neck exam: Present: normal inspection - Respiratory Respiratory exam: Present: normal lung sounds bilaterally. Absent: respiratory distress, wheezes, rales - Cardiovascular Cardiovascular Exam: Present: regular rate, normal rhythm, normal heart sounds. Absent: systolic murmur, diastolic murmur, rubs, gallop - GI/Abdominal GI/Abdominal exam: Present: soft, normal bowel sounds. Absent: distended, tenderness, guarding - Rectal Rectal exam: Present: deferred - Extremities Exam Extremities exam: Present: normal inspection - Back Exam Back exam: Present: normal inspection - Neurological Exam Neurological exam: Present: alert, oriented X3 - Psychiatric Psychiatric exam: Present: normal affect, normal mood - Skin Skin exam: Present: warm, dry, intact, normal color. Absent: rash ED Course Vital Signs 12/19/17 12/19/17 12/19/17 02:30 02:45 03:31 Temperature 98.8 F 99.4 F 98.8 F Pulse Rate 64 110 H 61 Respiratory 18 18 18 Rate Blood Pressure 157/78 95/56 157/78 O2 Sat by Pulse 96 100 100 Oximetry 12/19/17 07:43 Temperature 98.6 F Pulse Rate 53 L Respiratory 20 Rate Blood Pressure 155/79 O2 Sat by Pulse 100 Oximetry ED Medical Decision Making - Lab Data Result diagrams: 12/19/17 03:55 12/19/17 03:55 Lab Results 12/19/17 12/19/17 12/19/17 Range/Units 03:55 03:55 07:05 WBC 6.3 (4.5-11.0) K/mm3 RBC 3.75 (3.65-5.03) M/mm3 Hgb 11.7 L (11.8-15.2) gm/dl Hct 35.3 L (35.5-45.6) % MCV 94 (84-94) fl MCH 31 (28-32) pg MCHC 33 (32-34) % RDW 14.3 (13.2-15.2) % Plt Count 257 (140-440) K/mm3 Lymph % (Auto) 17.4 (13.4-35.0) % [place] % (Auto) 8.6 H (0.0-7.3) % Eos % (Auto) 6.9 H (0.0-4.3) % Baso % (Auto) 0.8 (0.0-1.8) % Lymph # 1.1 L (1.2-5.4) K/mm3 [place] # 0.5 (0.0-0.8) K/mm3 Eos # 0.4 (0.0-0.4) K/mm3 Baso # 0.1 (0.0-0.1) K/mm3 Seg Neutrophils % 66.3 (40.0-70.0) % Seg Neutrophils # 4.2 (1.8-7.7) K/mm3 Sodium 144 (137-145) mmol/L Potassium 3.9 (3.6-5.0) mmol/L Chloride 105.0 (98-107) mmol/L Carbon Dioxide 29 (22-30) mmol/L Anion Gap 14 mmol/L BUN 10 (9-20) mg/dL Creatinine 0.9 (0.8-1.5) mg/dL Estimated GFR > 60 ml/min BUN/Creatinine Ratio 11 % Glucose 88 (75-100) mg/dL Calcium 9.2 (8.4-10.2) mg/dL Troponin T < 0.010 < 0.010 (0.00-0.029) ng/mL - EKG Data -: EKG Interpreted by Ok EKG shows normal: axis, intervals, QRS complexes, ST-T waves Rate: bradycardia - EKG Data Interpretation: no acute changes - Radiology Data Radiology results: image reviewed Ordering Physician: DON SNYDER MD Date of Service: 12/19/17 Procedure(s): XR chest routine 2V Accession Number(s): [id number] cc: DON SNYDER MD Fluoro Time In Minutes: ROUTINE CHEST, TWO VIEWS: HISTORY: chest pain. The trachea, heart, mediastinal contour, lung harry and bony thorax are unremarkable. IMPRESSION: Unremarkable chest x-ray. Transcribed By: TTR Dictated By: AGUILA BEE JR, MD Electronically Authenticated By: AGUILA BEE JR, MD Signed Date/Time: 12/19/17 1144 - Medical Decision Making As a relatively low heart score is laboratory studies are within normal limits. Patient will be referred to cardiology for outpatient stress test. Patient be discharged home. Critical care attestation.: If time is entered above; I have spent that time in minutes in the direct care of this critically ill patient, excluding procedure time. ED Disposition Clinical Impression: Atypical chest pain Disposition: DC-01 TO HOME OR SELFCARE Is pt being admited?: No Does the pt Need Aspirin: No Condition: Stable Instructions: Chest Pain (ED) Referrals: GALINA PICKARD MD [Staff Physician] - 3-5 Days Time of Disposition: 11:59
== END 2017-12-19 12:09 | disposition home or self-care (01) ==
LOC: ED 02:27
DX: R07.89 Other chest pain (principal); Z88.8 Allergy status to other drugs, medicaments and biological substances
CPT/HCPCS: 36415; 71046; 80048; 84484; 85025; 93005; 93010